=== PATIENT | male | born 1955 | race Caucasian/White ===

== ENCOUNTER 2024-02-16 20:55 | Emergency (ER) | payer OTHER, MEDICARE, SELFPAY ==
[2024-02-16] VITALS (7 sets, daily range): BP systolic 81–125; BP diastolic 59–78; BMI 20.2
--- NOTE | 2024-02-16 21:13 | ED.GENMED ---
Addendum entered and electronically signed by Kobi Teixeira DO 02/17/24 00:22:
Update, patient prefers not to take Eliquis but would like to speak with his primary and cardiology likewise he would like to talk to them about statin
Clearly instructed to return to the ER for worsening symptoms
Original Note:
History of Present Illness
General
Chief Complaint: Chest Pain
Source: patient and spouse
Exam Limitations: none
Time Seen by Provider: 02/16/24 21:06
Nursing documentation reviewed up to this point in time: agreed with
History of Present Illness
History of Present Illness:
68-year-old male limited past medical history occasional smoker nondrinker presents with palpitations and chest pain intermittently all weekend, took his 's nitroglycerin without any relief, feels like he was punched in the chest, he gets these
episodes every week or so usually self-limiting, has been limiting his caffeine which she thought was helping no fevers no weight loss no weight gain, initial blood pressure in triage was in the 90s when I evaluated him blood pressures in the 1 teens
Past History
Past History
ED Past Medical History: Other (Ocular migraine)
ED Past Surgical History: None
Social History
Tobacco: Smoker (only in evenings has 2-3 cigarettes)
Alcohol: None
Drug: None
Personal:
Living: with family
Employment: Employed (animal care worker)
Family History
Family History: Other (Reviewed and noncontributory)
Review of Systems
Review of Systems
All Other Systems: Not applicable
Constitutional: Denies fever, fatigue or chills
EENT: Reports no symptoms
Respiratory: Reports trouble breathing
Cardiac: Reports chest pain and palpitations; Denies diaphoresis
ABD/GI: Reports no symptoms
: Reports no symptoms
Musculoskeletal: Reports no symptoms
Neurological: Reports dizzy
Endocrine: Reports no symptoms
Hematologic/Lymphatic: Reports no symptoms
Phy Exam
Physical Exam
Physical Exam:
Physical Exam
General: Nontoxic 68-year-old
Neck: No jaundice no obvious,
Heart: Tachycardic and regular
Lungs: no acute respiratory distress. clear bilaterally
Abdomen: Not tender
Neuro: alert and oriented. no focal neurological deficits
Skin: no rash
Psychiatric: well kept. interactive and cooperative
Extremities: no edema. No calf
Scores
Heart Score for Chest Pain Patients
STEMI patient?: No
History: Slightly or Non-Suspicious
ECG: Nonspecific Repolarization
Age: >/= 65 years
Risk Factors: No Risk Factors
Troponin: </= Normal Limit
Heart Score for Chest Pain Patients: 3
Heart Score Risk: 2.5% MACE over next 6 weeks
Course
Orders/Labs/Results
Orders:
Orders
02/16/24 20:55
Electrocardiogram (*1) Urgent
Reason for Study: Chest Pain
EKG- Treatment ONCE
02/16/24 21:10
Diltiazem 125 mg/125 ml Nss [Cardizem] 125 mg in 125 ml IV NOW
Initial dose in mg/hr, then titrate:: 5
Titrate to keep:: Heart rate 80-100 bpm
Titrate by mg/hr:: 5 mg/hr
Frequency of titrations (minutes):: 15
Maximum dose in mg/hr:: 15
Diltiazem HCl [Cardizem] 16 mg IV NOW STA
02/16/24 21:11
Basic Metabolic Panel Urgent
Complete Blood Count/With Diff Urgent
TSH Urgent
Comment: ADD ON
Troponin I Urgent
CR Chest Portable - 1 View Urgent
Comment:
Reason For Exam: cp hr 140
Reason Study Needs to be Portable: Unable to Transport
02/16/24 21:23
0.9% Sodium Chloride 1000 ml [Nss] 1,000 ml IV BOLUS
02/16/24 21:25
Propofol [Diprivan] 20 ml .ROUTE .STK-MED
02/16/24 21:26
ASA Classification Routine
Propofol [Diprivan] 100 mg IV NOW STA
02/16/24 21:31
Electrocardiogram (*1) Urgent
Reason for Study: Chest Pain
EKG- Treatment ONCE
02/16/24 21:37
Add On- LAB Urgent
Tests Added?: TSH
02/16/24 21:45
Hep Liver [Vivtg-Egls-Hloflgi] Urgent
Potassium Urgent
02/16/24 23:00
Potassium Chloride [KCl] 40 meq PO NOW STA
02/16/24 23:07
Troponin I Urgent
Abnormal Lab Results
02/16/24 02/16/24
21:11 21:45
Abs Immat Gran (auto) 0.1 H 10^3/uL
(0-0.05)
Absolute Lymphs (auto) 4.0 H 10^3/uL
(1.2-3.4)
Absolute Monos (auto) 1.0 H 10^3/uL
(0.1-0.6)
Monocytes % 9.4 H %
(1.7-9.3)
Eosinophils % 6.2 H %
(0-6)
BUN 23 H mg/dl
(9-20)
Glucose 130 H mg/dl
(70-99)
Total Protein 5.5 L g/dl
(6.3-8.2)
Albumin 3.3 L g/dl
(3.5-5.0)
02/16/24 21:11
02/16/24 21:45
Vital Signs
Initial and Last Documented VS:
Initial Vital Signs
Temp Pulse Resp BP Pulse Ox
97.4 F 152 24 90/60 100
02/16/24 20:59 02/16/24 20:59 02/16/24 20:59 02/16/24 20:59 02/16/24 20:59
Last Documented Vital Signs
Temp Pulse Resp BP Pulse Ox
97.4 F 68 11 115/61 96
02/16/24 20:59 02/16/24 23:00 02/16/24 23:00 02/16/24 23:00 02/16/24 23:00
MDM/Problems Addressed
Differential Diagnosis Includes:
SVT a flutter A-fib ACS PE thyroid storm
MDM/Problems Addressed:
Tachycardia chest pain
*Radiology
Radiology exam reviewed: radiology read reviewed
*Pulse Oximetry
Patient hypoxic: no
*EKG
Interpreted by ED Provider?: Yes
Interpretation: abnormal
Comparison EKG: no comparison EKG present
Heart Rate: 150
Rate: tachycardiac
Rhythm: atrial flutter
*Boiler Coverer Helper Interpretation
Rate: tachycardiac
Interpretation: abnormal
Heart Rate: 15
Rhythm: a-fib
*Critical Care Note
Total Time (30-74mins, 75-104mins- exclusive of procedures): 30
Update Note
Update Note:
After Cardizem bolus called to the room patient over the blood pressure in the 80s still heart rate of 150 with chest pressure verbal consent obtained for DC cardioversion as was getting set up he converted into normal sinus rhythm with
normalization of his blood pressure no longer having chest pain
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
Update patient states he feels 100% percent better, states she would like him to see CBC Dr. Lucia if possible
He recently started aspirin reviewed indications to start NOAC with him, also states that his PCP wanted to take a cholesterol med will start a low-dose beta-parviz or calcium channel parviz
ED Attending Note
-
Portions of this chart may have been created with voice recognition software.� Occasional wrong word or��sound alike� substitutions may have occurred due to the inherent limitations of voice recognition software.
Discharge Plan
Departure
Prescriptions:
No Action
aspirin 81 mg Capsule
81 mg PO DAILY
Referrals:
Inocencio Vilchis MD [Family Provider] -
Interventions
Interventions:
*Risk Screen - Suicide Last Done: 02/16/24 20:59
*General Assessment Last Done: 02/16/24 21:12
*Neglect/Abuse Screening Last Done: 02/16/24 20:59
ED- Fall Risk Assessment Last Done: 02/16/24 21:15
*ED COVID-19 Vaccine History Last Done: 02/16/24 21:12
ED- Cardiac Assessment Last Done: 02/16/24 21:33
ED- Pulmonary Assessment Last Done: 02/16/24 21:50
Discharge Date and Time
Print Language: CONGOLESE
[2024-02-16 21:17] LABS: % Basophils 1.2 % (0-2); % Eosinophils 6.2 % (0-6); % Immature Granulocytes 0.5 % (0-0.5); % Lymphocytes 38.9 % (20.5-51.1); % Monocytes 9.4 % (1.7-9.3); % Neutrophils 43.8 % (42.2-75.2); Absolute Basophils 0.1 10^3/uL (0-0.2); Absolute Eosinophils 0.6 10^3/uL (0-0.7); Absolute Immature Granulocytes 0.1 10^3/uL (0-0.05); Absolute Neutrophils 4.5 10^3/uL (1.4-6.5); Hematocrit 49.4 % (39.0-52.0); Hemoglobin 17.4 g/dL (13.0-18.0); Mean Corp Hgb Conc. 35.2 g/dL (33.0-37.0); Mean Corpuscular Hgb 30.9 pg (27.0-31.0); Mean Corpuscular Volume 87.7 fL (80.0-94.0); Mean Platelet Volume 9.7 fL (7.4-10.4); Nucleated Red Blood Cells % 0 % (-); Platelet Count 267 10^3/uL (130-400); Red Blood Cell Count 5.63 10^6/uL (4.70-6.10); Red Cell Dist. Width 14.4 % (11.5-14.5); White Blood Cell Count 10.3 10^3/uL (4.8-10.8)
[2024-02-16] MEDS: CARDIZEM 16 MG IV (21:18)
[2024-02-16] MEDS: NSS 1000 IV (21:24)
--- NOTE | 2024-02-16 21:25 | EDRN ---
Dr Teixeira placed pt on O2 via NRB, preparing pt for cardioversion.
--- NOTE | 2024-02-16 21:27 | EDRN ---
Pilar RN inserting second IV and pt converted to NSR in 70's. Pt says pressure in chest is gone. Pt removed from NRB.
[2024-02-16 21:31] LABS: Blood Urea Nitrogen 23 mg/dl (9-20); Calcium 9.6 mg/dl (8.4-10.2); Carbon Dioxide 23 mmol/L (22-30); Chloride 107 mmol/L (98-107); Estimated Creatinine Clearance 53 ml/min; Glucose 130 mg/dl (70-99); Sodium 138 mmol/L (135-145); eGFR > 60.00
[2024-02-16 21:41] LABS: Troponin I < 0.012 ng/ml
--- NOTE | 2024-02-16 21:55 | EDRN ---
No propofol administered to pt. 200mg propofol wasted with charge nurse, Adrienne Zaldivar, as a witness.
[2024-02-16 22:22] LABS: ALT (SGPT) 14 U/L (0-50); AST (SGOT) 21 U/L (17-59); Albumin 3.3 g/dl (3.5-5.0); Alkaline Phosphatase 87 U/L (38-126); Direct Bilirubin 0.1 mg/dl (0.0-0.4); Potassium 3.8 mmol/L (3.5-5.1); Total Bilirubin 0.3 mg/dl (0.2-1.3); Total Protein 5.5 g/dl (6.3-8.2)
[2024-02-16 22:29] LABS: TSH 2.24 uIU/ml (0.47-4.68)
[2024-02-16] MEDS: KCL 40 MEQ PO (23:03)
[2024-02-16 23:40] LABS: Troponin I < 0.012 ng/ml
[2024-02-17] VITALS: BP 134/75
== END 2024-02-17 00:28 | disposition home or self-care (01) ==
LOC: EMR 20:55
PROVIDERS: EMERGENCY PHYSICIAN Emergency Medicine; FAMILY PHYSICIAN Family Medicine
DX: I47.10 Supraventricular tachycardia, unspecified (principal); F17.210 Nicotine dependence, cigarettes, uncomplicated
CPT/HCPCS: 99291; 96374; 96361; 71045; 80048; 80076; 84132; 84443; 84484; 85025; 93005

== ENCOUNTER 2024-11-04 23:37 | Emergency (ER) | payer MEDICARE, SELFPAY ==
[2024-11-05] VITALS (21 sets, daily range): BP systolic 71–122; BP diastolic 49–75; BMI 20.3
[2024-11-05] MEDS: NSS 1000 IV ×2 (00:39→01:16)
[2024-11-05 00:55] LABS: % Basophils 1.3 % (0-2); % Eosinophils 6.7 % (0-6); % Immature Granulocytes 0.6 % (0-0.5); % Lymphocytes 25.3 % (20.5-51.1); % Monocytes 10.2 % (1.7-9.3); % Neutrophils 55.9 % (42.2-75.2); Absolute Basophils 0.1 10^3/uL (0-0.2); Absolute Eosinophils 0.6 10^3/uL (0-0.7); Absolute Immature Granulocytes 0.1 10^3/uL (0-0.05); Absolute Lymphocytes 2.2 10^3/uL (1.2-3.4); Absolute Monocytes 0.9 10^3/uL (0.1-0.6); Absolute Neutrophils 4.8 10^3/uL (1.4-6.5); Hematocrit 46.1 % (39.0-52.0); Hemoglobin 15.8 g/dL (13.0-18.0); Mean Corp Hgb Conc. 34.3 g/dL (33.0-37.0); Mean Corpuscular Hgb 31.5 pg (27.0-31.0); Mean Corpuscular Volume 91.8 fL (80.0-94.0); Nucleated Red Blood Cells % 0 % (-); Platelet Count 237 10^3/uL (130-400); Red Blood Cell Count 5.02 10^6/uL (4.70-6.10); Red Cell Dist. Width 13.5 % (11.5-14.5); White Blood Cell Count 8.5 10^3/uL (4.8-10.8)
[2024-11-05 01:10] LABS: ALT (SGPT) 20 U/L (0-50); AST (SGOT) 26 U/L (17-59); Albumin 3.8 g/dl (3.5-5.0); Alkaline Phosphatase 125 U/L (38-126); Blood Urea Nitrogen 19 mg/dl (9-20); Calcium 9.5 mg/dl (8.4-10.2); Carbon Dioxide 25 mmol/L (22-30); Chloride 105 mmol/L (98-107); Estimated Creatinine Clearance 63 ml/min; Glucose 129 mg/dl (70-99); Potassium 4.3 mmol/L (3.5-5.1); Sodium 138 mmol/L (135-145); Total Bilirubin 0.4 mg/dl (0.2-1.3); Total Protein 6.4 g/dl (6.3-8.2); eGFR > 60.00
--- NOTE | 2024-11-05 01:15 | ED.GENMED ---
History of Present Illness
General
Chief Complaint: Chest Pain
Source: patient, spouse and previous hospital records (ED visit for similar complaints January 2024)
Exam Limitations: none
Time Seen by Provider: 11/05/24 00:29
Nursing documentation reviewed up to this point in time: agreed with
History of Present Illness
History of Present Illness:
This is a 68-year-old gentleman who has history of paroxysmal atrial fibrillation with initial episode January 2024. A-fib converted spontaneously during ED visit. He declined anticoagulant at that time and admits to neglecting follow-up with
cardiology since that ED visit. He has however followed up with his PCP and has been maintained on metoprolol 25 mg twice daily and also takes a low-dose aspirin.
Overall has been feeling well until tonight when he developed palpitations that began suddenly around 9 PM feeling that his heart is beating rapidly and somewhat irregular accompanied with mild lightheadedness as well as mild chest discomfort. He
admits that current symptoms are less severe as they were January 2024.
Past History
Past History
ED Past Medical History: Arrthythmia (Paroxysmal atrial fibrillation), CVA (2 small ischemic infarcts left thalamus and right lentiform nucleus noted on MRI April 2021) and Other (Ocular migraine-retinal artery occlusion)
ED Past Surgical History: Other (Hernia repair)
Social History
Tobacco: Smoker (only in evenings has 2-3 cigarettes)
Alcohol: None
Drug: None
Personal:
Living: with family
Employment: Employed (flexographic printing machinist)
Family History
Family History: Other (Reviewed and noncontributory)
Phy Exam
Physical Exam
Physical Exam:
GENERAL: Alert , in no apparent distress. 68-year-old gentleman appears his stated age, awake and alert, pleasant, appears in no acute distress. is accompanying.
EYE: pupils equal and reactive
NECK: Supple, no significant adenopathy.
ENT: o/p clr, mmm.
CARDIAC: Irregularly irregular, tachycardic
LUNGS: Clear breath sounds bilaterally, no acute respiratory distress,
ABDOMEN: Soft, without focal tenderness, no r/g, no cvat
NEUROLOGICAL: Alert and oriented, no focal neuro deficits
SKIN: Warm and dry, skin intact.
MUSCULOSKELETAL: No edema, well perfused.
PSYCH: Normal and appropriate interaction.
Scores
Heart Score for Chest Pain Patients
STEMI patient?: No
History: Slightly or Non-Suspicious
ECG: Normal
Age: >/= 65 years
Risk Factors: 1 or 2 Risk Factors
Troponin: </= Normal Limit
Heart Score for Chest Pain Patients: 3
Heart Score Risk: 2.5% MACE over next 6 weeks
Course
Orders/Labs/Results
Orders:
Orders
11/04/24 23:40
EKG [Electrocardiogram (*1)] Urgent
Reason for Study: Chest Pain
11/04/24 23:41
EKG- Treatment ONCE
11/05/24 00:39
Complete Blood Count/With Diff Urgent
Comprehensive Metabolic Panel Urgent
Troponin I Urgent
0.9% Sodium Chloride 1000 ml [Nss] 1,000 ml IV BOLUS
0.9% Sodium Chloride 1000 ml [Nss] 1,000 ml IV BOLUS
Diltiazem 125 mg/125 ml Nss [Cardizem] 125 mg in 125 ml IV NOW
Initial dose in mg/hr, then titrate:: 5
Titrate to keep:: Heart rate 80-100 bpm
Titrate by mg/hr:: 5 mg/hr
Frequency of titrations (minutes):: 15
Maximum dose in mg/hr:: 15
Diltiazem HCl [Cardizem] 15 mg IV NOW STA
11/05/24 03:10
Propofol [Diprivan] 20 ml .ROUTE .STK-MED
11/05/24 03:12
Propofol [Diprivan] 20 ml .ROUTE .STK-MED
11/05/24 03:23
Electrocardiogram (*1) Urgent
Reason for Study: Palpitations
11/05/24 03:24
EKG- Treatment ONCE
Abnormal Lab Results
11/05/24
00:39
MCH 31.5 H pg
(27.0-31.0)
Abs Immat Gran (auto) 0.1 H 10^3/uL
(0-0.05)
Absolute Monos (auto) 0.9 H 10^3/uL
(0.1-0.6)
Immature Gran % 0.6 H %
(0-0.5)
Monocytes % 10.2 H %
(1.7-9.3)
Eosinophils % 6.7 H %
(0-6)
Glucose 129 H mg/dl
(70-99)
11/05/24 00:39
11/05/24 00:39
Vital Signs
Initial and Last Documented VS:
Initial Vital Signs
Temp Pulse Resp BP Pulse Ox
97.9 F 115 20 90/59 99
11/05/24 00:14 11/05/24 00:14 11/05/24 00:14 11/05/24 00:14 11/05/24 00:14
Last Documented Vital Signs
Temp Pulse Resp BP Pulse Ox
98.5 F 58 17 112/66 96
11/05/24 04:34 11/05/24 04:34 11/05/24 04:34 11/05/24 04:00 11/05/24 04:34
Procedures
Cardioversion
Indication:: Afib
Performed by:: myself
Synchronized?: Yes
Energy Used: 200 joules
Number of attempts: 1
Successful?: Yes
Complications: none
ASA Risk Score: Class II
Any reaction or bad outcome to prior sedation/anesthesia?: No history of a reaction
Sedation level to be attained: moderate
Chart and allergies reviewed: Yes
Patient reassessed prior to sedation: Yes
Time out completed at (validating right patient & procedure): 03:17
History of difficult intubation: No
Airway free of obstruction: Yes
Patient has a gag reflex: Yes
Patient is able to open mouth: Yes
Patient has no dentures: Yes
Patient has no loose teeth: Yes
Medication administered by Provider during Moderate Sedation: IV Propofol (mg)
Total dose administered: 60
Time drug administered: :
Start Time: :
Stop Time: :
MDM/Problems Addressed
Differential Diagnosis Includes:
Patient presents with paroxysmal atrial fibrillation with rapid ventricular response. Somewhat soft BP has improved. Similar mild hypotension noted January 2024 with rapid A-fib.
EKG shows atrial fibrillation with rapid ventricular response. No acute ST-T wave abnormalities.
With complaints of chest pain, concern for coronary ischemia. Will check labs including troponin.
Will initiate IV fluids and initiate IV Cardizem as this appeared to be successful in spontaneous conversion in January. If unsuccessful will plan for synchronized cardioversion.
Chronic conditions affecting care: Arrhythmia and Neurological disorder (Prior history of branch retinal artery occlusion as well as MRI in 2020 showing 2 small lacunar infarcts.)
*Pulse Oximetry
Patient hypoxic: no
*EKG
Interpreted by ED Provider?: Yes
Interpretation: abnormal
Comparison EKG: changes noted (A-fib has replaced normal sinus rhythm January 2024)
Rate: tachycardiac
Rhythm: a-fib
[place]: normal axis
Interval: normal QT interval
QRS Pattern: normal QRS
Ischemia: no ischemia
*Automobile Repossessor Interpretation
Rate: tachycardiac
Interpretation: abnormal
Rhythm: a-fib
*Critical Care Note
Total Time (30-74mins, 75-104mins- exclusive of procedures): Not Applicable
Update Note
Update Note:
04:40
Despite A-fib rate controlled with IV Cardizem, patient remains in atrial fibrillation and remains somewhat hypotensive.
Therefore elected to go forward with synchronized electrical cardioversion.
Patient tolerated procedure well, cardioverted to normal sinus rhythm.
He remains hemodynamically stable.
Labs are unremarkable.
Discussed anticoagulation, he has been given samples of Xarelto 20 mg to be taken nightly.
Encouraged prompt follow-up with cardiology, patient elects to follow-up with his 's automobile radiator mechanic, Dr. Alford.
ED Attending Note
-
Portions of this chart may have been created with voice recognition software.� Occasional wrong word or��sound alike� substitutions may have occurred due to the inherent limitations of voice recognition software.
Discharge Plan
Departure
Patient Disposition: Home (Routine Discharge)
Date of Disposition: 11/05/24
Time of Disposition: 04:32
Patient with high blood pressure during this ER visit?: No
Condition: Good
Discharge Problem:
Paroxysmal atrial fibrillation
Instructions: Rivaroxaban, Atrial fibrillation - Discharge instructions, MODERATE SEDATION ADULT
Prescriptions:
New
Xarelto 20 mg tablet
20 mg PO QPM Qty: 30 0RF
No Action
aspirin 81 mg Capsule
81 mg PO DAILY
Eliquis 5 mg tablet
5 mg PO BID Qty: 60 0RF
metoprolol tartrate 25 mg tablet
12.5 mg PO Q12H Qty: 30 0RF
atorvastatin 40 mg tablet
40 mg PO DAILY Qty: 90 0RF
Referrals:
Geoff Alford MD [Active] - Call in 1-3 days for appt
Inocencio Vilchis MD [Family Provider] -
Interventions
Interventions:
*Risk Screen - Suicide Last Done: 11/05/24 00:14
*General Assessment Last Done: 11/05/24 04:34
*Neglect/Abuse Screening Last Done: 11/05/24 04:34
*ED- Fall Risk Assessment Last Done: 11/05/24 04:34
*ED COVID-19 Vaccine History Last Done: 11/05/24 04:34
*Nursing Disposition Last Done: 11/05/24 04:34
ED- Cardiac Assessment Last Done: 11/05/24 00:32
Discharge Date and Time
Discharge Date/Time: 11/05/24 04:43
Print Language: CHINESE
[2024-11-05 01:16] LABS: Troponin I < 0.012 ng/ml
--- NOTE | 2024-11-05 01:20 | EDRN ---
Assisting primary RN w/ care of pt., attempted to medicate pt. per MAR orders; however, pt. is hypotensive, see vitals from [facility] monitor. Cardizem bolus and gtt. held at this time, second liter of NSS started, dr. mendoza aware.
[2024-11-05] MEDS: CARDIZEM 15 MG IV (02:01)
[2024-11-05] MEDS: CARDIZEM 125 IV ×2 (02:14→02:21)
--- NOTE | 2024-11-05 02:25 | EDRN ---
At 0200 IV push Diltiazem given. Pt reports feel relief of chest soreness. Pt HR in 80-90's hypotensive. MD at bedside Dr. Crane ok to continue IV drip at 2.5 mg /hr for next 30 minutes with possible cardioversion if patient remains hypotensive and
does not convert. Pt verbalizes understanding of education and is resting comfortably in no acute distress. Dr. Crane aware of pt vitals. Will continue to monitor.
== END 2024-11-05 04:43 | disposition home or self-care (01) ==
LOC: EMR 23:37
PROVIDERS: EMERGENCY PHYSICIAN Emergency Medicine; FAMILY PHYSICIAN Family Medicine
DX: I48.0 Paroxysmal atrial fibrillation (principal); F17.210 Nicotine dependence, cigarettes, uncomplicated; Z86.73 Personal history of transient ischemic attack (TIA), and cerebral infarction without residual deficits; Z79.899 Other long term (current) drug therapy; Z79.82 Long term (current) use of aspirin
CPT/HCPCS: 92960; 99152; 96374; 96361; 99285; 80053; 84484; 85025; 93005

== ENCOUNTER → 2024-12-30 07:59 | Outpatient (REF) | payer MEDICARE, BC, SELFPAY | LOC: RCS 07:59 | PROVIDERS: ATTENDING PHYSICIAN Internal Medicine Cardiovascular Disease; FAMILY PHYSICIAN Physician Assistant Medical | DX: I48.91 Unspecified atrial fibrillation (principal) | CPT/HCPCS: 93306 ==

== ENCOUNTER → 2025-06-03 17:28 | Outpatient (REF) | payer MEDICARE, BC, SELFPAY | LOC: MRI 3T 17:28 | PROVIDERS: ATTENDING PHYSICIAN Specialist; FAMILY PHYSICIAN Physician Assistant Medical | DX: R97.20 Elevated prostate specific antigen [PSA] (principal) | CPT/HCPCS: 72197; A9575 ==

== ENCOUNTER → 2025-07-20 19:52 | Outpatient (REF) | payer MEDICARE, BC, SELFPAY | LOC: MRI 19:52 | PROVIDERS: ATTENDING PHYSICIAN Physician Assistant Medical; FAMILY PHYSICIAN Family Medicine | DX: R42 Dizziness and giddiness (principal) | CPT/HCPCS: 70544; 70549; 70553; A9585 ==